=== PATIENT | male | born 1970 | race African-American/Black ===

== ENCOUNTER 2022-10-21 13:26 | Emergency (ER) | payer MEDICAID ==
[~2022-10-21] VITALS: Ht 172.7 cm; Wt 108.0 kg
[2022-10-21 13:45] VITALS: BP 127/58; PULSE 79; RESP 20; O2SAT 97
[2022-10-21 16:45] VITALS: TEMP 98.3
[2022-10-21] MEDS ORDERED: ACETAMINOPHEN 325MG TABLET PO ONE (16:45)
[2022-10-21] MEDS ORDERED: NAPR-1176 MT (17:16)
[2022-10-21] MEDS ORDERED: LIDO700A15 TP (17:16)
== END 2022-10-21 17:59 | disposition home or self-care (01) ==
LOC: ER 13:26
DX: R07.89 Other chest pain (principal); M94.0 Chondrocostal junction syndrome [Tietze]; J45.909 Unspecified asthma, uncomplicated
CPT/HCPCS: 71046; 99283; 99285